=== PATIENT | male | born 1940 | race Caucasian/White ===

== ENCOUNTER 2017-10-28 08:17 | Outpatient (CLI) | payer OTHER ==
[~2017-10-28 08:17] MED LIST: FINASTERIDE5 MG PO
== END 2017-10-28 08:24 | disposition home or self-care (01) ==
LOC: LAB 08:17
DX: R77.1 Abnormality of globulin (principal)

== ENCOUNTER 2018-02-17 00:43 | Emergency (ER) | payer OTHER ==
[~2018-02-17] VITALS: Ht 180.3 cm; Wt 88.5 kg
[2018-02-17] MEDS ORDERED: NIFEDIPINE ER30 M1 (01:11)
[2018-02-17] MEDS ORDERED: CEFUROXIME500 MG PO (04:02)
[2018-02-17] MEDS ORDERED: PYRIDIUM DS200 MG PO (04:02)
== END 2018-02-17 04:24 | disposition home or self-care (01) ==
LOC: ER 00:43
DX: N39.0 Urinary tract infection, site not specified (principal)

== ENCOUNTER 2019-10-12 08:30 | Outpatient (CLI) | payer OTHER ==
[~2019-10-12 08:30] MED LIST changes: +CEFUROXIME500 MG PO; +NIFEDIPINE ER30 M1; +PYRIDIUM DS200 MG PO
== END 2019-10-12 08:36 | disposition home or self-care (01) ==
LOC: RAD 08:30
PROVIDERS: ATTEND Internal Medicine Cardiovascular Disease
DX: E04.1 Nontoxic single thyroid nodule (principal); M54.12 Radiculopathy, cervical region

== ENCOUNTER 2019-10-28 13:17 | Outpatient (CLI) | payer OTHER | END 2019-10-28 13:20 | disposition home or self-care (01) | LOC: LAB 13:17 | PROVIDERS: ATTEND Internal Medicine Cardiovascular Disease | DX: K81.0 Acute cholecystitis (principal) ==

== ENCOUNTER 2019-11-19 09:53 | Outpatient (CLI) | payer OTHER | END 2019-11-19 10:00 | disposition home or self-care (01) | LOC: RAD 09:53 | PROVIDERS: ATTEND Internal Medicine Cardiovascular Disease | DX: I11.9 Hypertensive heart disease without heart failure (principal); N40.0 Benign prostatic hyperplasia without lower urinary tract symptoms; R33.8 Other retention of urine; Z01.811 Encounter for preprocedural respiratory examination ==

== ENCOUNTER 2019-12-16 07:16 | Outpatient (CLI) | payer OTHER | END 2019-12-16 07:24 | disposition home or self-care (01) | LOC: LAB 07:16 | PROVIDERS: ATTEND Internal Medicine Cardiovascular Disease | DX: N30.00 Acute cystitis without hematuria (principal) ==

== ENCOUNTER 2020-05-07 15:41 | Emergency (ER) | payer OTHER ==
[~2020-05-07] VITALS: Ht 180.3 cm; Wt 85.3 kg
[2020-05-07] MEDS ORDERED: MUCINEX DM ER1 EAC1 PO (21:57)
[2020-05-07] MEDS ORDERED: LEVOFLOXACIN500 MG PO (21:57)
== END 2020-05-07 22:02 | disposition home or self-care (01) ==
LOC: ER 15:41
DX: J06.9 Acute upper respiratory infection, unspecified (principal); B34.9 Viral infection, unspecified; N39.0 Urinary tract infection, site not specified

== ENCOUNTER 2020-05-09 06:40 | Outpatient (CLI) | payer OTHER ==
[~2020-05-09 06:40] MED LIST changes: +LEVOFLOXACIN500 MG PO; +MUCINEX DM ER1 EAC1 PO
== END 2020-05-09 06:47 | disposition home or self-care (01) ==
LOC: LAB 06:40
PROVIDERS: ATTEND Internal Medicine Cardiovascular Disease
DX: N40.0 Benign prostatic hyperplasia without lower urinary tract symptoms (principal); I11.9 Hypertensive heart disease without heart failure; E55.9 Vitamin D deficiency, unspecified; E07.89 Other specified disorders of thyroid; I50.32 Chronic diastolic (congestive) heart failure

== ENCOUNTER 2020-05-10 13:57 | Outpatient (CLI) | payer OTHER | END 2020-05-10 14:01 | disposition home or self-care (01) | LOC: LAB 13:57 | PROVIDERS: ATTEND Urology | DX: N30.00 Acute cystitis without hematuria (principal) ==

== ENCOUNTER → 2020-05-23 11:05 | Outpatient (CLI) | payer OTHER | END | disposition home or self-care (01) | LOC: LAB 11:05 | PROVIDERS: ATTEND Urology | DX: N30.00 Acute cystitis without hematuria (principal) ==

== ENCOUNTER 2021-05-26 07:20 | Outpatient (CLI) | payer OTHER | END 2021-05-26 07:30 | disposition home or self-care (01) | LOC: LAB 07:20 | PROVIDERS: ATTEND Internal Medicine Cardiovascular Disease | DX: E78.00 Pure hypercholesterolemia, unspecified (principal); I11.9 Hypertensive heart disease without heart failure ==

== ENCOUNTER 2021-10-10 06:51 | Outpatient (CLI) | payer OTHER | END 2021-10-10 07:00 | disposition home or self-care (01) | LOC: LAB 06:51 | PROVIDERS: ATTEND Internal Medicine Cardiovascular Disease | DX: I11.9 Hypertensive heart disease without heart failure (principal); E78.5 Hyperlipidemia, unspecified ==

== ENCOUNTER 2021-12-29 07:39 | Emergency (ER) | payer OTHER ==
[~2021-12-29] VITALS: Ht 180.3 cm; Wt 86.2 kg
== END 2021-12-29 11:07 | disposition home or self-care (01) ==
LOC: ER 07:39
DX: J02.9 Acute pharyngitis, unspecified (principal); Z20.822 Contact with and (suspected) exposure to COVID-19; Z88.2 Allergy status to sulfonamides

== ENCOUNTER 2022-02-12 07:38 | Outpatient (CLI) | payer OTHER | END 2022-02-12 07:39 | disposition home or self-care (01) | LOC: LAB 07:38 | PROVIDERS: ATTEND Internal Medicine Cardiovascular Disease | DX: I11.9 Hypertensive heart disease without heart failure (principal) ==

== ENCOUNTER → 2022-06-18 07:12 | Outpatient (CLI) | payer OTHER | END | disposition home or self-care (01) | LOC: LAB 07:12 | PROVIDERS: ATTEND Internal Medicine Cardiovascular Disease | DX: I11.9 Hypertensive heart disease without heart failure (principal); E78.00 Pure hypercholesterolemia, unspecified ==

== ENCOUNTER → 2022-08-03 06:10 | Outpatient (CLI) | payer OTHER ==
[~2022-08-03 06:10] MED LIST changes: +CIPRO250 MG; +LASIX20 MG; +NIFEDIPINE ER30 M1 PO; +TRAM1TAB98
== END | disposition home or self-care (01) ==
LOC: LAB 06:10
PROVIDERS: ATTEND Internal Medicine
DX: U07.1 COVID-19 (principal); B34.1 Enterovirus infection, unspecified

== ENCOUNTER 2022-08-03 07:20 | Outpatient (CLI) | payer OTHER | END 2022-08-03 07:22 | disposition home or self-care (01) | LOC: NUCLEAR 07:20 | PROVIDERS: ATTEND Internal Medicine Cardiovascular Disease | DX: I25.10 Atherosclerotic heart disease of native coronary artery without angina pectoris (principal) | CPT/HCPCS: 78452; 93017; A9500; J0153 ==

== ENCOUNTER 2023-01-28 07:00 | Outpatient (CLI) | payer OTHER ==
[2023-01-28 07:51] LABS: HEMOGLOBIN 14.3 g/dL (13-16.00); MEAN CELL VOLUME 91.1 fL (80.0-100.00); MEAN CORPUSCULAR HEMOGLOBIN 31.1 pg (27.00-32.0); MEAN CORPUSCULAR HGB CONC 34.1 g/dl (32.0-36.0); PLATELET COUNT 171 K/uL (150-450); RED BLOOD COUNT 4.61 M/uL (4.00-6.00); RED CELL DISTRIBUTION WIDTH 14.1 % (11.5-14.5)
[2023-01-28 08:43] LABS: ALBUMIN 3.3 gm/dL (3.4-5.0); BILIRUBIN TOTAL 0.65 mg/dL (0.3-1.2); CALCIUM 9.3 mg/dL (8.5-10.1); CHOL HDL RATIO 3.2 (0-5.0); CREATININE SERUM 1.12 mg/dL (0.70-1.30); GFR 62.61; GLOBULINA 3.8 G/DL (2.4-3.5); POTASSIUM 3.73 mEq/L (3.5-5.1); TOTAL PROTEIN 7.1 gm/dL (6.4-8.2)
== END 2023-01-28 07:02 | disposition home or self-care (01) ==
LOC: LAB 07:00
PROVIDERS: ATTEND Internal Medicine Cardiovascular Disease
DX: E11.9 Type 2 diabetes mellitus without complications (principal); E78.1 Pure hyperglyceridemia; Z88.2 Allergy status to sulfonamides

== ENCOUNTER 2023-05-20 07:43 | Outpatient (CLI) | payer OTHER ==
[2023-05-20 09:29] LABS: ALBUMIN 3.2 gm/dL (3.4-5.0); BILIRUBIN TOTAL 0.56 mg/dL (0.3-1.2); CALCIUM 9.2 mg/dL (8.5-10.1); CHOL HDL RATIO 3.1 (0-5.0); CREATININE SERUM 1.06 mg/dL (0.70-1.30); GFR 66.72; GLOBULINA 3.7 G/DL (2.4-3.5); POTASSIUM 3.74 mEq/L (3.5-5.1); TOTAL PROTEIN 6.9 gm/dL (6.4-8.2)
== END 2023-05-20 07:44 | disposition home or self-care (01) ==
LOC: LAB 07:43
PROVIDERS: ATTEND Internal Medicine Cardiovascular Disease
DX: I11.9 Hypertensive heart disease without heart failure (principal); E78.1 Pure hyperglyceridemia

== ENCOUNTER 2023-09-08 09:52 | Emergency (ER) | payer OTHER ==
[~2023-09-08] VITALS: Ht 180.3 cm; Wt 86.2 kg
[2023-09-08] MEDS ORDERED: CLINDAMYCIN PHOSPHATE 150 MG/ML (600mg) IM ONE (11:15)
== END 2023-09-08 11:58 | disposition left against medical advice (07) ==
LOC: ER 09:53
DX: K12.2 Cellulitis and abscess of mouth (principal); Z88.2 Allergy status to sulfonamides
CPT/HCPCS: 96372; 99282; J3490

== ENCOUNTER 2023-09-20 07:18 | Outpatient (CLI) | payer OTHER ==
[2023-09-20 07:50] LABS: HEMATOCRIT 41.8 % (39.0-48.0); HEMOGLOBIN 14.5 g/dL (13-16.00); MEAN CELL VOLUME 89.9 fL (80.0-100.00); MEAN CORPUSCULAR HEMOGLOBIN 31.1 pg (27.00-32.0); MEAN CORPUSCULAR HGB CONC 34.6 g/dl (32.0-36.0); PLATELET COUNT 191 K/uL (150-450); RED BLOOD COUNT 4.66 M/uL (4.00-6.00)
[2023-09-20 08:41] LABS: CALCIUM 9.2 mg/dL (8.5-10.1); CHOL HDL RATIO 2.9 (0-5.0); CREATININE SERUM 1.06 mg/dL (0.70-1.30); GFR 66.56; POTASSIUM 4.03 mEq/L (3.5-5.1)
== END 2023-09-20 07:19 | disposition home or self-care (01) ==
LOC: LAB 07:18
PROVIDERS: ATTEND Emergency Medicine Pediatric Emergency Medicine
DX: I11.9 Hypertensive heart disease without heart failure (principal); E78.1 Pure hyperglyceridemia

== ENCOUNTER 2024-04-06 13:05 | Emergency (ER) | payer OTHER ==
[~2024-04-06] VITALS: Ht 180.3 cm; Wt 81.6 kg
[2024-04-06] MEDS ORDERED: 0.9 % SODIUM CHLORIDE 1,000 ML IV SCH (14:04)
[2024-04-06 14:53] LABS: HEMATOCRIT 49.3 % (39.0-48.0); HEMOGLOBIN 17.2 g/dL (13-16.00); MEAN CELL VOLUME 89.6 fL (80.0-100.00); MEAN CORPUSCULAR HEMOGLOBIN 31.2 pg (27.00-32.0); MEAN CORPUSCULAR HGB CONC 34.8 g/dl (32.0-36.0); PLATELET COUNT 198 K/uL (150-450); RED BLOOD COUNT 5.51 M/uL (4.00-6.00); RED CELL DISTRIBUTION WIDTH 14.5 % (11.5-14.5)
[2024-04-06 15:14] LABS: CALCIUM 9.8 mg/dL (8.5-10.1); CREATININE SERUM 1.2 mg/dL (0.70-1.30); GFR 57.68; POTASSIUM 4.71 mEq/L (3.5-5.1)
[2024-04-06 15:33] LABS: PH,URINE 5.5 (5.0-8.0); URINE APPEARANCE Clear; URINE BILIRRUBIN Negative (NEGATIVE); URINE BLOOD Negative; URINE COLOR Yellow; URINE GLUCOSE Negative (NEGATIVE); URINE KETONE Trace (NEGATIVE); URINE LEUKOCYTE Negative; URINE NITRATE Negative; URINE PROTEIN Trace (NEGATIVE); URINE UROBILINOGEN 0.2 E.U./dl
[2024-04-06 15:39] LABS: URINE BACTERIA 53.8 uL (0.0-1933); URINE CAST 4.12 uL (0.0-1.40); URINE EPITHELIAL CELLS 5.5 uL (0.0-38.8); URINE WBC 4.4 uL (0.0-23.2)
[2024-04-06] MEDS ORDERED: FAMOTIDINE/PF 20 MG in 0.9 % SODIUM CHLORIDE 8 ML IV PUSH STA (16:05)
[2024-04-06] MEDS ORDERED: FAMOTIDINE/PF 20 MG/2 ML VIAL ONE (16:10)
[2024-04-06] MEDS ORDERED: DIPHENOXYLATE HCL/ATROPINE 1 UDTAB TABLET PO ONE (16:15)
[2024-04-06] MEDS ORDERED: PEPCID AC20 MG PO (17:28)
== END 2024-04-06 17:34 | disposition home or self-care (01) ==
LOC: ER 13:08
PROVIDERS: Emergency Medicine
DX: K52.89 Other specified noninfective gastroenteritis and colitis (principal); Z88.2 Allergy status to sulfonamides; I10 Essential (primary) hypertension
CPT/HCPCS: 36415; 96365; 96366; 99282; J3490; J7030

== ENCOUNTER 2024-04-20 06:25 | Outpatient (CLI) | payer OTHER ==
[~2024-04-20 06:25] MED LIST changes: +PEPCID AC20 MG PO
[2024-04-20 07:28] LABS: HEMATOCRIT 40.6 % (39.0-48.0); HEMOGLOBIN 14.4 g/dL (13-16.00); MEAN CORPUSCULAR HEMOGLOBIN 31.5 pg (27.00-32.0); MEAN CORPUSCULAR HGB CONC 35.4 g/dl (32.0-36.0); PLATELET COUNT 160 K/uL (150-450); RED BLOOD COUNT 4.57 M/uL (4.00-6.00); RED CELL DISTRIBUTION WIDTH 14.3 % (11.5-14.5)
[2024-04-20 08:30] LABS: ALBUMIN 3.1 gm/dL (3.4-5.0); BILIRUBIN TOTAL 0.62 mg/dL (0.3-1.2); CHOL HDL RATIO 2.7 (0-5.0); CREATININE SERUM 0.99 mg/dL (0.70-1.30); GFR 72.02; GLOBULINA 3.9 G/DL (2.4-3.5); POTASSIUM 3.68 mEq/L (3.5-5.1)
== END 2024-04-20 06:31 | disposition home or self-care (01) ==
LOC: LAB 06:25
PROVIDERS: ATTEND Internal Medicine Cardiovascular Disease
DX: I11.9 Hypertensive heart disease without heart failure (principal); E78.1 Pure hyperglyceridemia; E11.9 Type 2 diabetes mellitus without complications

== ENCOUNTER 2025-01-18 06:45 | Outpatient (CLI) | payer OTHER ==
[2025-01-18 07:35] LABS: URINE APPEARANCE Clear; URINE BILIRRUBIN Negative (NEGATIVE); URINE BLOOD Negative; URINE COLOR Yellow; URINE GLUCOSE Negative (NEGATIVE); URINE KETONE Negative (NEGATIVE); URINE LEUKOCYTE Small; URINE NITRATE Negative; URINE PROTEIN Negative (NEGATIVE); URINE UROBILINOGEN 0.2 E.U./dl
[2025-01-18 07:36] LABS: BASO % 0.3 % (0.1-1.2); EOS # 0.10 (0.04-0.54); EOS % 1.7 % (0.7-7.0); LYMPH # 1.26 (1.18-3.74); LYMPH % 21.2 % (19.3-53.1); MEAN PLATELET VOLUME 10.20 fl (9.4-12.4); MONO # 0.56 (0.24-0.82); MONO % 9.4 % (4.7-12.5); NEUT # 3.99 (1.56-6.13); NEUT % 67.1 % (34.0-71.1); RED CELL DISTRIBUTION WIDTH 13.3 % (11.6-14.4)
[2025-01-18 07:39] LABS: URINE BACTERIA 6.0 uL (0.0-1933); URINE EPITHELIAL CELLS 1.6 uL (0.0-38.8); URINE WBC 6.9 uL (0.0-23.2)
[2025-01-18 07:52] LABS: URINE CAST 0.00 uL (0.0-1.40); URINE RBC 0.8 uL (0.0-20.8)
[2025-01-18 08:56] LABS: ALT/SGPT 21.0 U/L (12-78); AST/SGOT 20.0 U/L (15-37); BILIRUBIN TOTAL 0.6 mg/dL (0.3-1.2); BUN CREA RATIO 14.0 (7.0-25.0); CHOL HDL RATIO 2.6 (0-5.0); CREATININE SERUM 1.01 mg/dL (0.70-1.30); GFR 70.21; GLOBULINA 3.8 G/DL (2.4-3.5); GLUCOSE FASTING 103.0 mg/dL (65-100); HDL 67.0 mg/dl (40-60); LDL 95.0 mg/dl (0-130); OSMOLALITY SERUM 286.0 MOSM/KG (275-295); T3 UPTAKE 30.0 % (33-40); VLDL 12.0 (0-39)
[2025-01-18 08:57] LABS: PROSTATIC SPECIFIC ANTIGEN 13.6 NG/ML (0.010-4.00)
[2025-01-18 08:58] LABS: T4 TOTAL 14.14 UG/DL (4.5-12.1); TSH 5.09 uIU/mL (0.358-3.74)
[2025-01-18 10:15] LABS: ob NEGATIVE (NEGATIVE)
[2025-01-18 15:36] LABS: T3 TOTAL 1.51 ng/ml (0.846-2.02); VITAMIN D3 25 HYDROXY 34.57 ng/ml (30-120)
== END 2025-01-18 06:46 | disposition home or self-care (01) ==
LOC: LAB 06:45
PROVIDERS: ATTEND General Practice
DX: D64.1 Secondary sideroblastic anemia due to disease (principal); E11.42 Type 2 diabetes mellitus with diabetic polyneuropathy; E55.9 Vitamin D deficiency, unspecified; M10.9 Gout, unspecified; E78.2 Mixed hyperlipidemia; E03.2 Hypothyroidism due to medicaments and other exogenous substances; N39.0 Urinary tract infection, site not specified; M85.9 Disorder of bone density and structure, unspecified; I11.9 Hypertensive heart disease without heart failure; Z12.11 Encounter for screening for malignant neoplasm of colon; N40.0 Benign prostatic hyperplasia without lower urinary tract symptoms